=== PATIENT | female | born 1990 | race Asian ===

== ENCOUNTER 2024-11-13 08:22 | Day surgery (SDC) | payer OTHER, SELFPAY ==
--- OUTSIDE RECORDS SUMMARY | 2024-11-05 17:31 | XMS_ITS | Clinical Summary ---
Author Organization [facility] Address [address] [place] [phone] Phone Care Team Providers Care Manager Flight Operations Name Role Phone SilviaJenna Bennett Dorothy Primary Car e Provider Allergies Active Allergy Reactions Criticality Noted Date Comments Metformin Hives,Diarrhea 01/03/2024 Dulaglutide Nausea and/or Vomiting 01/03/2024 Medications atorvastatin (LIPITOR) 10 MG tablet Take 10 mg by mouth daily. 4 Active FREESTYLE LITE Strp strips 1 each by Percutaneous route 4 (four) times a day. 4 Active glipiZIDE (GLUCOTROL XL) 5 MG 24 hr tablet Take 5 mg by mouth 2 (two) times a day with meals. 4 Active venlafaxine (EFFEXOR) 37.5 MG tablet Take 37.5 mg by mouth daily. 4 Active venlafaxine (EFFEXOR-XR) 150 MG 24 hr capsule Take 150 mg by mouth daily. 4 Active norethindrone (AYGESTIN) 5 mg tablet Take 1 tablet by mouth every morning. 4 Active LUPRON DEPOT 3.75 mg IM injection syringe Inject 3.75 mg into the muscle every 28 days. 4 Active DUPIXENT PEN 300 mg/2 mL subcutaneous pen Inject under the skin every 14 (fourteen) days. 4 Active FREESTYLE LITE METER meter kitIndications:T ype 2 diabetes mellitus with hyperglycemia, without long-term current use of insulin To monitor blood glucose 1 each 5 Active semaglutide (OZEMPIC) 1 mg/dose (4 mg/3 mL) subcutaneous injection penIndications:T ype 2 diabetes mellitus with hyperglycemia, without long-term current use of insulin Inject 1 mg under the skin every 7 days. 9 mL 1 5 Active Active Problems Problem Noted Date Diagnosed Date Type 2 diabetes mellitus wit h hyperglycemia, without long-term current use of insulin 01/03/2024 Assessment & Plan (03/05/2024 11:33 AM EST): Control is improving based upon the patient's recall of her SMBG readings. No frequent or severe hypoglycemia. She is tolerating ozempic well and her glucose levels have responded well with coming down. Will increase her dosing to 0.5 mg weekly. Will lower her glipizide to taking 1- 5 mg BID from 2- 5 mg BID to help prevent possible low glucose levels. Continue to work on eating healthier and being active. To call or message with any issues managing her glucose levels. Up to date with [employer]. Labs ordered Assessment & Plan (01/04/2024 1:06 PM EST): She was diagnosed with type 2 diabetes in 2020 on blood work after having a history of gestational diabetes with each of her 3 pregnancies. She has no known complications from the diabetes at this time. Her control is suboptimal based upon her recall of her SMBG readings. She is currently using glipizide and trulicity to try and manage her glucose levels. She is having severe constipation, bloating, and abdominal discomfort from the use of the trulicity but if she doesn't take it her glucose levels are much higher. She previously tried metformin but was not able to tolerate side effects. She has severe diarrhea from it resulting in loss of consciousness due to dehydration. She also developed diffuse skin rashes while using the metformin. Once stopped the diarrhea and rashes resolved. No frequent or severe hypoglycemia. Discussed pathophysiology of diabetes and complications of uncontrolled diabetes. Discussed progressive nature of disease. Discussed rationale & goals for control. Role of diet, exercise, medications. Role of & goals for HbA1c & SMBG. Reviewed options to improve control with risks & benefits, including intensification of lifestyle & available medications. Reviewed normal insulin physiology, role of basal/bolus insulin. Discussed prevention & treatment of hypoglycemia. Will try switching her trulicity to ozempic to see if with lower dosing capability we can resolve the GI side effects from the trulicity but have the glucose control. Continue to work on eating healthy & keeping active. To call or send in log with problems with glucose control. Foot & nail care good. Up to date with [employer], to request report be sent here. She was also seen by Dr Velazquez to discuss the treatment plan Encounters Date Type Department Care Team Description 08/19/2024 Telephone [employer] [facility] [address], [place] [id number] Alda Chu Appointment from Last 3 Months Social History Tobacco Use Types Packs/Day Years Used Date Smoking Tobacco: Never Passive Smoke Exposure: Never Smokeless Tobacco: Never Tobacco Cessation:Counseling Given: No Alcohol Use Standard Drinks/Week Comments Not Currently 0 (1 standard drink = 0.6 oz pur e alcohol) Education Answer Date Recorded Are you interested in more education? Not on mima e 09/25/2023 Are you concerned about learning? Not on file 09/25/2023 No 09/25/2023 No 09/25/2023 Digital Access Answer Date Recorded No 09/25/2023 No 09/25/2023 Reliable internet access at home? Not on file 09/25/2023 Device with a working camera? Not on file Comments Unknown Sex and Gender Information Value Date Recorded Sex Assigned at Not on file Legal Sex Female 12:22 PM EDT Gender Identity Not on file Sexual Orientation Not on file Last Filed Vital Signs Vital Sign Reading Time Taken Comments Blood Pressure 114/70 01/03/2024 2:54 PM EST Pulse 111 01/03/2024 2:54 PM EST Temperature 36.7 C (98 F) 03/04/2024 12:57 PM EST Respiratory Rate - - Oxygen Saturation 98% 01/03/2024 2:5 4 PM EST Inhaled Oxygen Concentration - - Weight 61.2 kg (134 lb 14.7 oz) 03/04/2024 12:57 PM EST patient reported Height 151.9 cm (4' 11.8 ) 01/03/2024 2 :54 PM EST Body Mass Index 26.52 01/03/2024 2:54 PM EST Plan of Treatment Upcoming Encounters Date Type Department Care Team (Late st Contact Info) Description 11/22/2024 2:50 PM EDT Office Visit [facility] [address] [place] [address] Danica Moore PA-C [address] [place] [phone] 06/13/2025 12:00 PM EDT Office Visit [facility] [address] [place] [address] [place] [address] Manuela Daniel MD [address] [place] [phone] [email or web address] Health Maintenance Due Date Last Done Comments DEPRESSION SCREENING 2000 HEPATITIS C SCREENING 02/21/2006 HIV ONE-TIME SCREENING (18-6 5 YEARS) 02/21/2006 PNEUMOCOCCAL VACCINES (0-49 years) (1 of 2 - PCV) 02/21/2007 PAP SMEAR 02/21/2009 DIABETIC EYE EXAM 01/03/2024 URINE MICROALBUMIN/CREATININ E RATIO 01/03/2024 BLOOD PRESSURE 07/02/2024 01/03/2024 INFLUENZA VACCINE (#1) 2024 COVID-19 VACCINE ( - 2023-2 5 season) 2024 HEMOGLOBIN A1C 11/23/2024 05/24/2024, 12/19/2023, 01/15/2019 Adult Td,Tdap Booster 05/25/2028 05/25/2018 , 07/16/2015, 09/08/2013 SMOKING STATUS SCREENING (On ce After 26 Yrs) Completed 03/04/2024 HEPATITIS A VACCINES Aged Out No long er eligible based on patient's age to complete this topic HIB VACCINES Aged Out No longer eligi ble based on patient's age to complete this topic MENINGOCOCCAL VACCINES (ACWY) Aged Out No longer eligible based on patient's age to complete this topic MENINGOCOCCAL VACCINES (B) Aged Out N o longer eligible based on patient's age to complete this topic Medical Devices Not on file Procedures Procedure Name Priority Date/Time Associated Diagnosis Comments HEMOGLOBIN A1C Routine 05/24/2024 3:42 PM EDT Type 2 diabetes mellitus with hyperglycemia, without long-term current use of insulin from Last 3 Months or Most Recently Relevant to Health Maintenance Results * (ABNORMAL) Hemoglobin A1c (05/24/2024 3:42 PM EDT) HEMOGLOBIN A1C 6.1(H) 4.3 - 5.8 % [facility] Blood 05/24/2024 3:42 PM EDT 05/24/2024 3:46 PM EDT us Danica Moore PA-C LAB BLOOD ORDERABL ES Final Result [facility] [address] [place] [address] from Last 3 Months or Most Recently Relevant to Health Maintenance Insurance [facility] [email or web address] [email or web address] [facility] [employer] [facility] [employer] Care Teams Manager Flight Operations Relationship Specialty Start Date End Date Jenna Nava DO PCP - General Internal Medicine 09/07/23 Additional Source Comments The information contained in this document represents components of the legal health record. It is not the complete legal health record.[facility]
--- OUTSIDE RECORDS SUMMARY | 2024-11-05 17:31 | XMS_ITS ---
Author Name [facility] Organization Unknown Encounters Encounter Type Encounter Reason Primary Diagnosis Location Date [facility] 03/14/2024 [facility] 03/14/2024 [facility] 03/14/2024 [facility] 03/11/2024 Care Team Organization Name Specialty Phone Email Start Date End [facility] 03/22/2024
--- OUTSIDE RECORDS SUMMARY | 2024-11-05 17:31 | XMS_ITS | Clinical Summary ---
Author Organization [facility] [address] [facility] Address [address] [place] [address] Phone Care Team Providers Care Unit Tender Name Role Phone Physician, No Pcp Primary Care Provider Unavaila ble Allergies Active Allergy Reactions Criticality Noted Date Comments Dulaglutide Nausea And Vomiting 01/03/2024 Metformin 09/08/2023 Medications fluticasone-salme terol (ADVAIR DISKUS) 250-50 mcg/dose diskus inhaler Inhale into the lungs. Active glucose blood test strip 1 each daily. 12/12/19 20 Active semaglutide (Ozempic) 0.25 mg or 0.5 mg(2 mg/1.5 mL) injection pen 0 Refills, Maintenance, 04/04/24 1:43:00 PM EST, Partial fill upon patient request if the prescription is for a schedule II opioid drug. 04/04/19 25 Active Linzess 72 mcg capsule Take 1 capsule (72 mcg total) by mouth 1 (one) time each day. Active ibuprofen (ADVIL,MOTRIN) 800 mg tablet Take 1 tablet (800 mg total) by mouth. 01/01/20 16 Active hydrOXYzine pamoate (VISTARIL) 25 mg capsule TAKE 1 CAPSULE BY MOUTH NEEDED 06/28/19 25 Active glipiZIDE (GLUCOTROL XL) 5 mg 24 hr tablet Take 1 tablet (5 mg total) by mouth 2 (two) times a day with meals. Active gabapentin (NEURONTIN) 300 mg capsule TAKE 1 BY MOUTH EVERY DAY AT BEDTIME 06/19/19 25 Active fluticasone HFA (Flovent HFA) 220 mcg/actuation inhaler 2 puffs 2 times daily. 03/28/19 19 Active Dupixent Pen 300 mg/2 mL pen Inject under the skin. 10/17/19 24 Active doxepin (SINEquan) 10 mg capsule take 1 capsule by mouth once a day as needed 06/28/19 25 Active clindamycin (CLEOCIN T) 1 % gel APPLY TO FACE TWICE A DAY AFTER BENZOYL PEROXIDE WASH 03/05/19 25 Active FreeStyle Lite Meter monitoring kit To monitor blood glucose 03/04/19 25 Active atorvastatin (LIPITOR) 10 mg tablet Take 1 tablet (10 mg total) by mouth 1 (one) time each day. Active buPROPion (WELLBUTRIN) 75 mg tablet Take by mouth 2 (two) times a day. Active venlafaxine XR (EFFEXOR-XR) 150 mg 24 hr capsule TAKE 2 BY MOUTH EVERY DAY Active levonorgestrel-et hinyl estradiol (SEASONALE) 0.15 mg-30 mcg (91) per tablet Take 1 tablet by mouth 1 (one) time each day. 84 tablet 3 07/09/19 25 026 Active norethindrone (AYGESTIN) 5 mg tablet Take 1 tablet (5 mg total) by mouth 1 (one) time each day. 90 tablet 09/20/19 25 025 Active medroxyPROGESTERo ne (Depo-Provera) 150 mg/mL injectionIndicati ons:Encounter for surveillance of injectable contraceptive Inject 1 mL (150 mg total) into the shoulder, thigh, or buttocks every 3 (three) months. 1 mL 3 10/25/19 25 Active Hospital, Clinic, or Other Facility Administered Medication Ordered Dose Route Frequency Start Date End Date Status medroxyPROGESTERone (DEPO-PROVERA) injection 150 mgIndications:Endometr iosis determined by laparoscopy 150 mg IM Every 3 months 10/24/2024 10/19/2025 Active Active Problems Problem Noted Date Diagnosed Date Adjustment reaction with anxiety and depression 12/12/2019 Endometriosis determined by laparoscopy 07/11/19 14 Overview (03/14/2024): H/O endometriosis. L/S in 2011 Encounters Date Type Department Care Team Description 10/24/2024 2:15 PM EDT Office Visit [facility] [address] [place] [phone] Genet H[place], Endometriosis determined by laparoscopy (Primary Dx); Encounter for surveillance of injectable contraceptive from Last 3 Months Medical History Medical History Date Comments Endometriosis DX:Endometriosis Social History Tobacco Use Types Packs/Day Years Used Date Smoking Tobacco: Never Smokeless Tobacco: Never Tobacco Cessation:Counseling Given: Not Answered Alcohol Use Standard Drinks/Week Comments Never 0 (1 standard drink = 0.6 oz pur e alcohol) Housing Instability Answer Date Recorde d Are you worried that in the next 2 months you may not have stable housing? Yes 10/24/2024 Food Access & Nutrition Answer Date Rec orded Do you have access to a vari ety of food including fruits and vegetables? Yes 10/24/2024 Access to Healthcare Answer Date Record ed Within the last 3 months, ho w many times did you visit the emergency department for your medical care? 0 10/24/2024 Health Literacy Answer Date Recorded How often do you need to hav e someone help you when you read instructions, pamphlets, or other written material from your doctor or pharmacy? Never 10/24/2024 Caregiver: How often do you need to have someone help you when you read instructions, pamphlets, or other written material from your doctor or pharmacy? Not on file 10/24/2024 Financial Risk Answer Date Recorded How hard is it for you to pa y for the very basics like food, housing, medical care, and air conditioning / heating? Very hard 10/24/2024 Transportation Answer Date Recorded Has the lack of transportati on kept you from meetings, work, or from getting things needed for daily living? No Has the lack of transportati on kept you from medical appointments or from getting medications? No 10/24/2024 Social Isolation Answer Date Recorded How often do you feel lonely or isolated from th ose around you? Always 10/24/2024 Food Risk Answer Date Recorded Within the past 12 months we worried whether our food would run out before we got money to buy more. Often true 025 Within the past 12 months th e food we bought just didn't last and we didn't have money to get more. Sometimes true 10/24/2024 Dependent Care Answer Date Recorded Do you need help finding or paying for care for your loved ones. For example, child development specialist or elderly care for an older adult? No 10/24/2024 Education Answer Date Recorded Do you think completing more education or training, like finishing a GED, going to college, or learning a trade, would be helpful for you? No 10/24/2024 Employment and Income Answer Date Recor ded During the last four weeks, have you been actively looking for work? Yes 10/24/2024 Living Situation Answer Date Recorded What is your living situation? 0 10/24/2024 Comments No Sex and Gender Information Value Date Recorded Sex Assigned at Not on file Legal Sex Female 9:15 PM EST Gender Identity Not on file Sexual Orientation Not on file Obstetrics History * This document contains information received from the source organization and may not represent a complete record from that organization. Para Term AB IAB SAB Ectopic Multiple Livin g Live Births 7 3 3 0 0 0 3 3 Date Outcome GA Total Labor Labor/2nd/3rd Weight Sex Type Anes PTL Cara A1 A5 Name Clin 2013 Term 39w 5d 2750 g (97 oz) F CS-Un spec Epidur al N Livin g 8 9 Deborah Becca Complications:Intraamniotic Infection Delivery Location:[facility] Comments:breech, succe ssful version, water broke 09/05/13, progressed to 8 cm with pit aug, IUPC, variable decels, 09/06/14 for chorio 2013 2014 2014 2015 Term 40w 3d 3199 g (112.8 oz) F Epidur al N Livin g [address] Delivery Location:[facility] 2018 Term 39w 1d 0h 11m 0h 07m/0h 04m 3232 g (114 oz) M Epidur al N Livin g 8 9 Hussein BAUER MD Complications:Obstetrical ru pture of uterus Delivery Location:[facility]) Comments:Uterine dehis cence (asymptomatic) and exploratory laparotomy Last Filed Vital Signs Vital Sign Reading Time Taken Comments Blood Pressure 100/71 10/24/2024 2:04 PM EDT Pulse 106 10/24/2024 2:04 PM EDT Temperature - - Respiratory Rate 16 03/14/2024 10:56 AM EST Oxygen Saturation - - Inhaled Oxygen Concentration - - Weight 52.3 kg (115 lb 6.4 oz) 10/24/2024 2:04 P M EDT Height 157.5 cm (5' 2 ) 03/14/2024 10:56 AM EST Body Mass Index 21.11 03/14/2024 10:56 AM EST Plan of Treatment Health Maintenance Due Date Last Done Comments Diabetes: Annual GFR (Glomerular Filtration Rate) 1988 Diabetes: Annual Foot Exam 02/21/1998 Diabetes: Annual Retina Eye Exam 02/21/1998 Cervical Cancer Screening: Pap Smear 08/05/2019 08/04/2016 Cholesterol Screening (Lipid Panel) 01/22/2022 HIV Screening 01/22/2022 Hepatitis C Screening 01/22/2022 Diabetes: Annual Urine Albumin-Creatinine Ratio (uACR) 03/15/2024 Diabetes: Blood Sugar Control Test (HGBA1C) 03/15/2024 Influenza Vaccine (#1) 2024 , 12/29/2021, 12/27/2019, Additional history exists Social Influencers of Health Screening 10/24/2025 10/24/2024 DTaP,Tdap,and Td Vaccines (5 - Td or Tdap) 10/17/2033 10/18/2023, 05/25/2018, 07/16/2015, Additional history exists COVID-19 Vaccine Completed 10/18/2023, 10/2021, 02/28/2021, Additional history exists Hepatitis A Vaccines Aged Out 11/19/2023, 10/18/19 24 No longer eligible based on patient's age to complete this topic Hepatitis B Vaccines Completed 11/19/2023, 10/18/2023, 04/07/2017, Additional history exists Pneumococcal Vaccine: Pediatrics (0 to 5 Years) and At-Risk Patients (6 to 49 Years) Aged Out 12/18/2023, 01/09/2023, 12/25/2018 No longer eligible based on patient's age to complete this topic Depression Screening Completed 10/24/2024 HIB Vaccines Aged Out No longer eligi ble based on patient's age to complete this topic HPV Vaccines Aged Out No longer eligi ble based on patient's age to complete this topic IPV Vaccines Aged Out No longer eligi ble based on patient's age to complete this topic MMR Vaccines Aged Out No longer eligi ble based on patient's age to complete this topic Meningococcal ACWY Vaccine Aged Out N o longer eligible based on patient's age to complete this topic Meningococcal B Vaccine Aged Out No l onger eligible based on patient's age to complete this topic RSV Immunization Patients Under 20 months Aged Out No longer eligible based on patient's age to complete this topic Varicella Vaccines Aged Out No longer eligible based on patient's age to complete this topic Insurance [facility] Care Teams Unit Tender Relationship Specialty Start Date End Date Physician, No Pcp PCP - General 03/14/24
--- OUTSIDE RECORDS SUMMARY | 2024-11-05 17:31 | XMS_ITS | Encounter Summary ---
Author Organization [facility] Address [address] [place] [phone] Phone Care Team Providers Care Frame Cleaner Name Role Phone MartineznohelianehaJenna oconnell DO Primary Car e Provider Reason for Visit * Reason Onset Date Comments Appointment 08/19/2024 Encounter Details Date Type Department Care Team ([facility] st Contact Info) Description 08/19/2024 Telephone [facility] [address] [place] [address] Alda [email or web address] Appointment Social History Tobacco Use Types Packs/Day Years Used Date Smoking Tobacco: Never Passive Smoke Exposure: Never Smokeless Tobacco: Never Alcohol Use Standard Drinks/Week Comments Not Currently [...] on file Sexual Orientation Not on file documented as of this encounter Progress Notes * Alda Chu - 08/19/2024 11:43 AM EDT Patient called in asking if the appointment tomorrow at 1:20pm can be a virtual visit. Please contact and advise. Central Support Furnace Checker (Please do not reply to this user; this inbox is not monitored.) Thank you. documented in this encounter Plan of Treatment Upcoming Encounters Date Type Department Care Team (Late st Contact Info) Description 11/22/2024 2:50 PM EDT Office Visit [facility] [address] [place] [address] Danica Moore PA-C [address] [place] [phone] 06/13/2025 12:00 PM EDT Office Visit [facility] [address] [place] [address] Manuela Daniel MD [address] [place] [phone] documented as of this encounter Visit Diagnoses Not on filedocumented in this encounter Care Teams Frame Cleaner Relationship Specialty Start Date End Date Jenna Nava DO PCP - General Internal Medicine 09/07/23 documented as of this encounter Additional Source Comments The information contained in this document represents components of the legal health record. It is not the complete legal health record.[facility]
[2024-11-11 11:47] VITALS: BMI 20.5
[2024-11-13 09:53] LABS: UPreg QC Valid YES
[2024-11-13 10:00] VITALS: BP 109/76; PULSE 97; RESP 20; TEMP 36.5; O2SAT 100
[2024-11-13 10:02] LABS: Glucose, Whole Blood 120 mg/dL (60-115)
[2024-11-13] MEDS: Lactated Ringers 1,000 ML 100 ML IVCONT (10:02)
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
[2024-11-13 12:13] VITALS: BP 128/78; PULSE 104; RESP 12; TEMP 36.2; O2SAT 100
[2024-11-13 12:18] VITALS: BP 124/75; PULSE 114; RESP 18; O2SAT 100
[2024-11-13 12:23] VITALS: BP 114/66; PULSE 113; RESP 17; O2SAT 98
[2024-11-13 12:28] VITALS: BP 114/66; PULSE 112; RESP 17; O2SAT 99
[2024-11-13 12:43] VITALS: BP 116/69; PULSE 110; RESP 17; TEMP 36.2; O2SAT 99
--- NOTE | 2024-11-13 14:22 | P.OPHTHAL_ITS ---
Ophthalmology Operative Note Date of Service: 11/13/24 Narrative: Diagnosis esotropia. Postoperative diagnosis same. Procedure bilateral medial rectus recessions of [address] Melendez. Anesthesia general. Complications none. The patient was brought to the operating room placed under general anesthesia. The eyes were prepped and draped in the usual sterile ophthalmic fashion. A lid speculum was placed in the right eye and incisions made at bare sclera in the inferonasal fornix. The medial rectus was hooked and secured with a double-armed Vicryl suture. The muscle was disinserted from the globe and reattached to a position 3 mm behind the original insertion. Conjunc tiva was closed with interrupted Vicryl sutures. An identical procedure was then performed of the left eye. The patient was then awoken from general anesthesia and discharged to postoperative recovery in good condition.
== END 2024-11-13 13:05 | disposition home or self-care (01) ==
PROVIDERS: Nurse Practitioner; PCP Internal Medicine; Visit Provider Ophthalmology
PROC: (CPT 67311; principal; 2024-11-13 11:40)
DX: H50.32 Intermittent alternating esotropia (principal); H50.682 Extraocular muscle entrapment, unspecified, left eye; J45.30 Mild persistent asthma, uncomplicated; E11.65 Type 2 diabetes mellitus with hyperglycemia; G43.909 Migraine, unspecified, not intractable, without status migrainosus; G47.09 Other insomnia; F32.A Depression, unspecified; F41.9 Anxiety disorder, unspecified; N83.209 Unspecified ovarian cyst, unspecified side; L20.9 Atopic dermatitis, unspecified; Z79.85 Long-term (current) use of injectable non-insulin antidiabetic drugs; Z79.84 Long term (current) use of oral hypoglycemic drugs; Z79.620 Long term (current) use of immunosuppressive biologic; Z79.899 Other long term (current) drug therapy; Z88.8 Allergy status to other drugs, medicaments and biological substances; Z98.890 Other specified postprocedural states
CPT/HCPCS: 67311; 81025; 82947; J1100; J1596; J1885; J2003; J2371; J2405; J2704; J3010